=== PATIENT | female | born 1945 | race American Indian/Alaskan Native ===

== ENCOUNTER → 2017-04-15 | Outpatient (CLI) | payer OTHER ==
[~2017-04-15] MED LIST: CLARITIN 24HR10 MG PO; COREG CR10 M1 PO; L20 PO; MEDDP PO; PROVENTIL0.09 MG/A1 INH; PULMICORT0.5 MG/2 M IH; SINGULAIR10 MG PO; TYLENOL EXTRA500 M2; ZESTRIL20 MG PO
== END | disposition home or self-care (01) ==
LOC: RD 08:48
DX: M54.5 Low back pain (principal)

== ENCOUNTER → 2017-06-04 | Outpatient (CLI) | payer OTHER | END | disposition home or self-care (01) | LOC: CT 11:39 | PROC: BW20ZZZ Computerized Tomography (CT Scan) of Abdomen (ICD-10-PCS; principal; 2017-06-04) | DX: I71.4 Abdominal aortic aneurysm, without rupture (principal) ==

== ENCOUNTER 2017-06-13 06:29 | Emergency (ER) | payer OTHER ==
[~2017-06-13] VITALS: Ht 149.9 cm; Wt 65.3 kg
[2017-06-13 06:34] VITALS: Ht 149.9 cm; Wt 65.3 kg
[2017-06-13 08:01] VITALS: BP 115/71
== END 2017-06-13 08:01 | disposition home or self-care (01) ==
LOC: ED 06:29
DX: J45.909 Unspecified asthma, uncomplicated (principal); Z88.8 Allergy status to other drugs, medicaments and biological substances
CPT/HCPCS: J7512; J7613; J7644; Q0092

== ENCOUNTER → 2018-12-31 | Outpatient (CLI) | payer OTHER | END | disposition home or self-care (01) | LOC: US 09:32 | PROC: B440ZZZ Ultrasonography of Abdominal Aorta (ICD-10-PCS; principal; 2018-12-31) | DX: I71.4 Abdominal aortic aneurysm, without rupture (principal) ==

== ENCOUNTER → 2019-12-17 | Outpatient (CLI) | payer OTHER | END | disposition home or self-care (01) | LOC: US 10:00 | PROC: B440ZZZ Ultrasonography of Abdominal Aorta (ICD-10-PCS; principal; 2019-12-17) | DX: I71.4 Abdominal aortic aneurysm, without rupture (principal) ==